=== PATIENT | female | born 1955 | race African-American/Black ===

== ENCOUNTER 2021-02-09 11:27 | Inpatient (IN) | payer OTHER ==
[~2021-02-09] VITALS: Ht 167.6 cm; Wt 100.9 kg
[2021-02-09 12:52] LABS: BASOPHILS % (AUTO) 0.7 % (0.0-2.0); EOSINOPHILS % (AUTO) 1.2 % (1.0-6.0); HEMATOCRIT 40.1 % (36-46); HEMOGLOBIN 13.5 g/dL (12.0-16.0); LYMPHOCYTES # (AUTO) 1.2 K/uL (1.0-4.8); MEAN CORPUSCULAR HGB CONC 33.7 G/dL (31.0-37.0); MEAN CORPUSCULAR VOLUME 86 fL (80-100); MONOCYTES # (AUTO) 0.6 K/uL (0.1-1.0); MONOCYTES % (AUTO) 8.2 % (2.0-9.0); NEUTROPHILS % (AUTO) 72.9 % (40.0-70.0); PLATELET COUNT (AUTO) 190 K/uL (150-450); RED BLOOD CELL COUNT(AUTO) 4.66 MIL/uL (4.00-5.20); RED CELL DISTRIBUTION WIDTH 15.3 % (11.5-14.5)
[2021-02-09 13:02] LABS: CALCIUM, TOTAL 8.9 mg/dL (8.8-10.5); CREATININE 1.79 mg/dL (0.60-1.30); POTASSIUM 3.6 mmol/L (3.5-5.1)
[2021-02-09 13:26] LABS: ALBUMIN 3.5 g/dL (3.4-5.0); BILIRUBIN,TOTAL 0.8 mg/dL (0.1-1.0)
[2021-02-09] MEDS ORDERED: ASPIRIN 325 MG TABLET PO ONE (13:30)
[2021-02-09] MEDS ORDERED: ACETAMINOPHEN 325 MG TABLET PO PRN (14:00)
[2021-02-09] MEDS: CARVEDILOL 6.25 MG TABLET PO SCH ×2 (14:18→20:39)
[2021-02-09] MEDS: AmLODIPine BESYLATE 5 MG TABLET PO SCH (14:18)
[2021-02-09 15:27] LABS: COVID AG,FIA SOURCE NASOPHARYNGEAL
[2021-02-09] MEDS: DOCUSATE SODIUM 100 MG CAPSULE PO SCH (20:38)
[2021-02-09] MEDS: HEPARIN SODIUM,PORCINE 5,000 UNITS/ML VIAL SQ SCH (20:39)
[2021-02-10] MEDS ORDERED: AmLODIPine BESYLATE 5 MG TABLET PO ONE
[2021-02-10 01:12] VITALS: BP 198/107
[2021-02-10 03:18] VITALS: BP 158/96
[2021-02-10 06:59] LABS: AMPHET/METH SCREEN,URINE NEGATIVE (NEGATIVE); BARBITURATE SCREEN, URINE NEGATIVE (NEGATIVE); BENZODIAZEPINES SCREEN,URINE NEGATIVE (NEGATIVE); CANNABINOID SCREEN,URINE POSITIVE (NEGATIVE); COCAINE SCREEN,URINE NEGATIVE (NEGATIVE); METHADONE SCREEN, URINE NEGATIVE (NEGATIVE); OPIATE SCREEN,URINE NEGATIVE (NEGATIVE)
[2021-02-10 07:08] LABS: PHENCYCLIDINE SCREEN,URINE NEGATIVE (NEGATIVE)
[2021-02-10 07:28] VITALS: BP 135/96
[2021-02-10] MEDS: CARVEDILOL 6.25 MG TABLET PO SCH (08:31)
[2021-02-10] MEDS: DOCUSATE SODIUM 100 MG CAPSULE PO SCH (08:31)
[2021-02-10] MEDS: AmLODIPine BESYLATE 5 MG TABLET PO SCH (08:31)
[2021-02-10] MEDS: HEPARIN SODIUM,PORCINE 5,000 UNITS/ML VIAL SQ SCH (08:32)
[2021-02-10] MEDS ORDERED: AmLODIPine BESYLATE 5 MG TABLET PO SCH ×2 (09:00→10:45)
[2021-02-10] MEDS ORDERED: FAMOTIDINE 20 MG TABLET PO SCH (09:00)
[2021-02-10] MEDS ORDERED: ASPIRIN 81 MG CHEWABLE TABLET PO SCH (09:00)
[2021-02-10 11:18] VITALS: BP 131/84
[2021-02-10 13:26] LABS: CALCIUM, TOTAL 8.9 mg/dL (8.8-10.5); CREATININE 1.4 mg/dL (0.60-1.30); POTASSIUM 3.6 mmol/L (3.5-5.1)
[2021-02-10] MEDS ORDERED: CARV6 PO (14:00)
[2021-02-10] MEDS ORDERED: AMLO-257 PO (14:01)
[2021-02-10] MEDS ORDERED: ASPI-1450 PO (14:02)
== END 2021-02-10 14:55 | disposition home or self-care (01) | DRG 313 ==
LOC: EMS 11:54 → 5S 14:00
PROVIDERS: ADMIT Internal Medicine; ATTEND Internal Medicine
DX: R07.89 Other chest pain (principal); N17.9 Acute kidney failure, unspecified; N18.9 Chronic kidney disease, unspecified; I12.9 Hypertensive chronic kidney disease with stage 1 through stage 4 chronic kidney disease, or unspecified chronic kidney disease; Z82.49 Family history of ischemic heart disease and other diseases of the circulatory system; Z91.14 Patient's other noncompliance with medication regimen; F12.90 Cannabis use, unspecified, uncomplicated; Z20.822 Contact with and (suspected) exposure to COVID-19
CPT/HCPCS: 71045; 80048; 80053; 82550; 83880; 84484; 85025; 93005; 93306; 99285; J1644; 36415-L1; 36415-TC